=== PATIENT | male | born 1965 | race Caucasian/White ===

== ENCOUNTER 2019-07-25 09:00 | Day surgery (SDC) | payer OTHER ==
[~2019-07-25] VITALS: Ht 188 cm; Wt 154.5 kg
[2019-07-25 09:36] LABS: HEMATOCRIT 41.1 % (42.0-54.0); MCH 29.2 pg (26.0-34.0); MCHC 34.1 g/dL (31.0-37.0); MCV 85.6 fL (80.0-100.0); MEAN PLATELET VOLUME 11.3 fL (7.4-10.4); RBC 4.8 10x6/uL (4.20-6.10); RDW 13.5 % (11.5-14.5); WBC 8.8 10x3/uL (4.8-10.8)
[2019-07-25 09:44] LABS: CALC OSMOLALITY 279 mosm/kg (275-300); CALCIUM 8.6 mg/dL (8.5-10.1); CARBON DIOXIDE 28.8 mmol/L (21.0-32.0); CHLORIDE - SERUM 106 mmol/L (98-107); CREATININE - SERUM 0.8 mg/dL (0.6-1.3); GLUCOSE 102 mg/dL (74-106); POTASSIUM - SERUM 3.8 mmol/L (3.5-5.1); SODIUM 141 mmol/L (136-145); UREA NITROGEN 10 mg/dL (7-18); eGFR NON AFRICAN AMERICAN > 90 mL/min (90-120)
[2019-07-25] MEDS ORDERED: ASPIRIN81 MG PO (10:02)
[2019-07-25] MEDS ORDERED: NORVASC10 MG PO (10:02)
[2019-07-25] MEDS ORDERED: METOPROLOL TART25 MG PO (10:03)
[2019-07-25] MEDS ORDERED: LASIX80 MG PO (10:03)
[2019-07-25] MEDS ORDERED: LIPITOR40 MG PO (10:03)
[2019-07-25] MEDS ORDERED: XOPENEX HFA15 GM INH (10:04)
[2019-07-25] MEDS ORDERED: OMEPRAZOLE20 M1 PO (10:04)
[2019-07-25] MEDS ORDERED: K-DUR20 MEQ PO (10:04)
[2019-07-25 10:18] VITALS: BP 167/92; Ht 188 cm; Wt 154.5 kg
--- NOTE | 2019-07-25 13:04 | NUR ---
1250 IV REMOVED AND PAPERS GIVEN TO POLICE
--- NOTE | 2019-07-25 16:07 | OP ---
PATIENT NAME: MERCEDES ALVAREZ MEDICAL RECORD: [id number] :69 LOCATION:[facility] ADMISSION DATE: SURGEON: ZEV GUIDO MD DATE OF OPERATION: 07/25/2019 PREOPERATIVE DIAGNOSIS: Fecal occult blood positivity. POSTOPERATIVE DIAGNOSES: 1. Fecal occult blood positivity. 2. Diffuse pangastritis with friability. 3. Moderate hiatal hernia. 4. Distal esophagitis, rule out Eaton esophagus. SURGEON: Zev Guido MD DIRECTOR OF SUSTAINABILITY PROGRAMS: None. BLOOD LOSS: Minimal. ANESTHESIA: IV sedation. COMPLICATIONS: None. The risks, possible complications and alternatives to the procedure were explained to the patient. He elects to proceed. The discussion specifically included, but was not limited to, bleeding requiring an emergency reoperation, infection, endoscopic perforation. ENDOSCOPIC COURSE: The patient was conveyed to the endoscopy suite electively on 07/25/2019. IV sedation was induced by the anesthesia staff. A bite block was inserted. A gastroscope was inserted into the mouth. It was advanced easily into the hypopharynx. The esophagus was easily intubated as were the stomach and duodenum. Upon withdrawal, retroflexed and angulus views were obtained. It was at this time I noticed that where the scope had rubbed up against the stomach that there was some bleeding that occurred. This contact bleeding may have had something to do with the patient's fecal occult blood positivity. I noted no erosions. No ulcers. After the antral biopsies were obtained, I withdrew into the distal esophagus, LA type 3 distal esophagitis was noted. This also could be a source of the patient's occult blood positivity. At the Z-line, cold biopsies were obtained in the area of esophagitis. This was to rule out Eaton esophagus. I then slowly withdrew the endoscope. I will see the patient on a p.r.n. basis. There is no need for the patient to follow up with me in the office unless he develops a complication related to this operative procedure. I would recommend that he continue on a proton pump inhibitor. This upper endoscopy does identify a potential source for the patient's fecal occult blood positivity. TRANSINT:[id number] Voice Confirmation ID: [id number] DOCUMENT ID: [id number] cc: Surya [place], OPERATIVE REPORT [id number] MERCEDES ALVAREZ ZEV GUIDO MD at 1607 CC: DR. LEE [id number] DICTATION DATE: 07/25/19 1203 ACTIVITIES ASSISTANT: 07/25/19 1213 [facility] [place] 07/25/19 [id number] [place] [address]
--- NOTE | 2019-07-25 16:07 | HP ---
PATIENT: MERCEDES ALVAREZ MEDICAL RECORD: [id number] ACCOUNT: [id number] LOCATION:[facility] : 69 ADMISSION DATE: 07/25/19 PCP: AYAD GUIDO MD HISTORY AND PHYSICAL EXAMINATION PRINCIPAL DIAGNOSIS: Occult gastrointestinal bleeding. HISTORY OF PRESENT ILLNESS: The patient has undergone a prior colonoscopy, which revealed no source of occult GI bleeding. He was found to have a right-sided prostate nodule upon the colonoscopy. The patient was found to be too high risk to undergo EGD out of the residential. He has a high ASA classification. He is to undergo EGD today. No significant reflux on the omeprazole. No dysphagia. He does have left lower quadrant abdominal pain, also epigastric abdominal pain. The risks, possible complications and alternatives to the procedure were explained to the patient. He elects to proceed. MEDICINES AT THE HALFWAY: Please see the nursing list. ALLERGIES: No known drug allergies. SOCIAL HISTORY: Former smoker with a [id number] history. PAST MEDICAL AND SURGICAL HISTORY: Emphysema, asthma, hypertension, congestive heart failure, gastroesophageal reflux. REVIEW OF SYSTEMS: Negative for diabetes or thyroid problems. Negative for renal disease or hepatitis. PHYSICAL EXAMINATION: GENERAL: The patient does not appear acutely ill. He does appear chronically ill. VITAL SIGNS: Reviewed. EARS: External ears appear normal. EYES: Extraocular movements are intact. NECK: Trachea is midline. CHEST: No intercostal retractions. PULMONARY: Nonlabored and no stridor. IMPRESSION: Occult gastrointestinal bleeding. PLAN: Will be EGD. TRANSINT:[id number] Voice Confirmation ID: [id number] DOCUMENT ID: [id number] cc: Dr. Kitchen HISTORY AND PHYSICAL [id number] MERCEDES ALVAREZ AYAD GUIDO MD at 1607 CC: DR. REYNOLDS [id number] DICTATION DATE: 07/25/19 1138 CALENDER SUPERVISOR: 07/25/19 1157 [facility] 07/25/19 [id number] [place] [address]
== END 2019-07-25 13:04 ==
LOC: D.OPS 09:00
PROVIDERS: Anesthesiology; ATTEND Surgery
DX: K29.60 Other gastritis without bleeding (principal); R19.5 Other fecal abnormalities; K44.9 Diaphragmatic hernia without obstruction or gangrene; K20.9 Esophagitis, unspecified